=== PATIENT | male | born 1950 | race Caucasian/White ===

== ENCOUNTER 2019-01-11 11:00 | Outpatient (CLI) | payer BC ==
--- NOTE | 2019-01-11 12:02 | RAD ---
ESOPHAGRAM: HISTORY: Difficulty swallowing. Radiation dosimetry is 1.5 minutes of fluoroscopy and DAP of 13.8 mGy*cm^2 . A suspension of barium sulfate was given orally. Spot and overhead images obtained. FINDINGS: The esophagus is unremarkable. No evidence of esophageal webs, bands, or stricture seen. No significa nt evidence of mucosal lesions seen. IMPRESSION: Normal esophagram with no significant evidence of mucosal lesions seen. Transcribed Date/Time: 01/11/2019 12:22 PM
== END 2019-01-11 11:01 | disposition home or self-care (01) ==
LOC: RAD 11:00
PROVIDERS: ATTEND Otolaryngology Plastic Surgery within the Head & Neck
DX: R13.13 Dysphagia, pharyngeal phase (principal)
CPT/HCPCS: 74220